=== PATIENT | female | born 1970 | race Two or more races ===

== ENCOUNTER 2024-05-09 23:07 | Emergency (ER) | payer OTHER ==
[~2024-05-09] VITALS: Ht 160 cm; Wt 90.0 kg
[2024-05-09 23:26] VITALS: BP 135/74; PULSE 93; RESP 18; O2SAT 97
== END 2024-05-10 03:45 | disposition left against medical advice (07) ==
LOC: ER 23:07
DX: S61.012A Laceration without foreign body of left thumb without damage to nail, initial encounter (principal); Z53.21 Procedure and treatment not carried out due to patient leaving prior to being seen by health care provider; W45.8XXA Other foreign body or object entering through skin, initial encounter; Y93.89 Activity, other specified; Y92.89 Other specified places as the place of occurrence of the external cause; Y99.8 Other external cause status